=== PATIENT | male | born 1965 | race African-American/Black ===

== ENCOUNTER 2016-12-28 03:19 | Emergency (ER) | payer MEDICARE ==
[~2016-12-28] VITALS: Ht 177.8 cm; Wt 103.0 kg
[2016-12-28 03:35] VITALS: BP 136/86
[2016-12-28] MEDS ORDERED: cefTRIAXone IM 250 MG VIAL IM ONE (04:15)
[2016-12-28] MEDS ORDERED: AZITHROMYCIN 250 MG TABLET. PO ONE (04:15)
[2016-12-28] MEDS ORDERED: HYDR453.4 TP (05:17)
--- NOTE | 2016-12-28 05:18 | PHYS DOC ---
Past Medical History Past Medical History: Other Additional Past Medical Histor: CHRONIC BACK PAIN Past Surgical History: Other Additional Past Surgical Histo: BACK Alcohol Use: Rarely Drug Use: None Adult General Chief Complaint Chief Complaint: OTHER COMPLAINTS HPI HPI Patient is a 51 year old male who presents with penile swelling. The patient reports 1 day history of swelling of the distal foreskin associated with painful urination. Also complains of bilateral testicular pain. Denies fevers/ chills, abdominal pain, nausea, vomiting, hematuria, penile discharge. Does not give a definite answer when asked if he could have been exposed to sexually transmitted disease. Also has itchy rash to left forearm without known exposure , no face/tongue/lip swelling, no shortness of breath. Review of Systems Review of Systems Constitutional: Denies fever or chills HENT: Denies nasal congestion or sore throat Respiratory: Denies cough or shortness of breath Cardiovascular: Denies chest pain GI: Denies abdominal pain, nausea, vomiting : Reports penile swelling Musculoskeletal: Denies back pain or joint pain Integument: Denies rash Neurologic: Denies headache Current Medications Current Medications Current Medications Medications (Trade) Dose Ordered Sig/Kenia Start Time Stop Time Status Last Admin Dose Admin Azithromycin (Zithromax) 1,000 mg 1X ONCE 12/28/16 04:15 12/28/16 04:16 DC Ceftriaxone Sodium (Rocephin Im) 250 mg 1X ONCE 12/28/16 04:15 12/28/16 04:16 DC Fluconazole (Diflucan) 150 mg 1X ONCE 12/28/16 05:30 12/28/16 05:31 DC 12/28/16 05:31 150 MG Allergies Allergies Allergies Coded Allergies Type Severity Reaction Last Updated Verified No Known Drug Allergies 12/04/15 No Physical Exam Physical Exam Constitutional: Well developed, well nourished, no acute distress, non-toxic appearance. HENT: Normocephalic, atraumatic, bilateral external ears normal, oropharynx moist, nose normal. Eyes: conjunctiva normal, no discharge. Cardiovascular: no edema. Lungs & Thorax: no respiratory distress. Abdomen: soft, nontender, nondistended. : uncircumcised penis with swelling over distal foreskin which can easily be retracted, no rash or lesions, no discharge evident, bilateral testicular tenderness without palpable masses Skin: Warm, dry, no erythema, erythematous maculopapular rash to volar forearm no urticaria or vesicular lesions. Extremities: No deformity Neurologic: Alert and oriented X 3 Current Patient Data Vital Signs Vital Signs Date Time Temp Pulse Resp B/P (MAP) Pulse Ox O2 Delivery O2 Flow Rate FiO2 12/28/16 03:35 97.9 79 16 96 Room Air 97.9 EKG EKG [] Radiology/Procedures Radiology/Procedures [] Course & Med Decision Making Course & Med Decision Making Pertinent Labs and Imaging studies reviewed. (See chart for details) The patient presents with penile swelling. Consistent with balanitis or possible insect bite. Gave diflucan x 1 & recommend benadryl for possible reaction to insect bite as well as contact dermatitis on forearm. Recommended empiric treatment for gonorrhea/chlamydia with urinary swab & testicular ultrasound, but the patient declined this evaluation after vacillating for over an hour. He states he just wants to be treated for penile swelling & would like to go home. He is aware of risk of possible undiagnosed condition. Counseled regarding safe sex, recommend follow up with PCP or urologist in 1 week. Come back for high fever, severe pain, uncontrolled vomiting, inability to urinate or inability to retract foreskin, or otherwise worsening condition. Discharged home in stable condition. [] Dragon Disclaimer Dragon Disclaimer This electronic medical record was generated, in whole or in part, using a voice recognition dictation system. Departure Departure Impression: Primary Impression: Balanitis Disposition: 01 HOME, SELF-CARE Condition: STABLE Referrals: NO PCP (PCP) Patient Instructions: Balanitis and Foreskin Hygiene, Contact Dermatitis, Easy- to-Read Additional Instructions: You were seen in the emergency department today for rash. Please apply the cream and take Benadryl for itching. You received antifungal treatment for penis infection. You refused testing or treatment for sexual transmitted infection. You declined ultrasound for testicular pain. Always use protection when having sexual intercourse. Benadryl may help with swelling if there is a bug bite contributing. Follow-up with primary care physician in 2-3 days. Return to the emergency department for face/tongue/lip swelling, severe shortness of breath, inability to urinate, severe abdominal pain, any otherwise worsening condition. Scripts Hydrocortisone (HYDROCORTISONE) 453.6 Gm Oint...g. 1 APPLIC TP BID, #60 GM 0 Refills Prov: HENRIQUE DUKE MD 12/28/16 HENRIQUE DUKE MD Dec 28, 2016 05:17
[2016-12-28] MEDS ORDERED: FLUCONAZOLE 100 MG TABLET. PO ONE (05:30)
== END 2016-12-28 05:36 | disposition home or self-care (01) ==
LOC: ER 03:19
DX: N48.1 Balanitis (principal); G89.29 Other chronic pain
CPT/HCPCS: 99283

== ENCOUNTER 2019-04-05 08:58 | Emergency (ER) | payer OTHER, MEDICAID ==
[~2019-04-05] VITALS: Ht 177.8 cm; Wt 103.0 kg
[~2019-04-05 08:58] MED LIST: HYDR453.4 TP
[2019-04-05 09:07] VITALS: BP 114/78
--- NOTE | 2019-04-05 09:18 | PHYS DOC ---
Past Medical History Past Medical History: Other Additional Past Medical Histor: CHRONIC BACK PAIN Past Surgical History: Other Additional Past Surgical Histo: BACK Alcohol Use: Rarely Drug Use: None Adult General Chief Complaint Chief Complaint: SEXUALLY TRANSMITTED DISEASE HPI HPI Patient is a 53 year old male who presents with dysuria and green discharge that has been ongoing for 1 day. The patient rates his pain a 7 out of 10 in severity. No other complaints. Review of Systems Review of Systems Constitutional: Denies fever or chills [] Eyes: Denies change in visual acuity, redness, or eye pain [] HENT: Denies nasal congestion or sore throat [] Respiratory: Denies cough or shortness of breath [] Cardiovascular: No additional information not addressed in HPI [] GI: Denies abdominal pain, nausea, vomiting, bloody stools or diarrhea [] : Reports dysuria and green discharge. Musculoskeletal: Denies back pain or joint pain [] Integument: Denies rash or skin lesions [] Neurologic: Denies headache, focal weakness or sensory changes [] Endocrine: Denies polyuria or polydipsia [] Complete systems were reviewed and found to be within normal limits, except as documented in this note. Current Medications Current Medications Current Medications Medications (Trade) Dose Ordered Sig/Kenia Start Time Stop Time Status Last Admin Dose Admin Azithromycin (Zithromax) 1,000 mg 1X ONCE 04/05/19 09:30 04/05/19 09:31 DC 04/05/19 09:31 1,000 MG Ceftriaxone Sodium (Rocephin Im) 250 mg 1X ONCE 04/05/19 09:30 04/05/19 09:31 DC 04/05/19 09:30 250 MG Allergies Allergies Allergies Coded Allergies Type Severity Reaction Last Updated Verified No Known Drug Allergies 12/04/15 No Physical Exam Physical Exam Constitutional: Well developed, well nourished, no acute distress, non-toxic appearance. [] HENT: Normocephalic, atraumatic, bilateral external ears normal, oropharynx moist, no oral exudates, nose normal. [] Eyes: PERRLA, EOMI, conjunctiva normal, no discharge. [] Neck: Normal range of motion, no tenderness, supple, no stridor. [] Cardiovascular:Heart rate regular rhythm, no murmur [] Lungs & Thorax: Bilateral breath sounds clear to auscultation [] Abdomen: Bowel sounds normal, soft, no tenderness, no masses, no pulsatile masses. [] Skin: Warm, dry, no erythema, no rash. [] Back: No tenderness, no CVA tenderness. [] Extremities: No tenderness, no cyanosis, no clubbing, ROM intact, no edema. [] Neurologic: Alert and oriented X 3, normal motor function, normal sensory function, no focal deficits noted. [] Psychologic: Affect normal, judgement normal, mood normal. [] Current Patient Data Vital Signs Vital Signs Date Time Temp Pulse Resp B/P (MAP) Pulse Ox O2 Delivery O2 Flow Rate FiO2 04/05/19 09:07 98.2 70 16 114/78 (90) 98 Room Air 98.2 Lab Values Laboratory Tests Test 04/05/19 09:15 Urine Collection Type Unknown Urine Color Yellow Urine Clarity Cloudy Urine pH 6.0 Urine Specific [place] >=1.030 Urine Protein 30 mg/dL (NEG-TRACE) Urine Glucose (UA) Negative mg/dL (NEG) Urine Ketones (Stick) Trace mg/dL (NEG) Urine Blood Small (NEG) Urine Nitrite Negative (NEG) Urine Bilirubin Small (NEG) Urine Urobilinogen Dipstick 1.0 mg/dL (0.2 mg/dL) Urine Leukocyte Esterase Large (NEG) Urine RBC 6-10 /HPF (0-2) Urine WBC 20-40 /HPF (0-4) Urine Squamous Epithelial Cells Few /LPF Urine Bacteria Few /HPF (0-FEW) Urine Mucus Slight /LPF EKG EKG [] Radiology/Procedures Radiology/Procedures [] Course & Med Decision Making Course & Med Decision Making Pertinent Labs and Imaging studies reviewed. (See chart for details) Will get UA, GC/Chlamydia and will treat with Rocephin and Zithromax. Urine also shows leukocytes in urine and he has been having dysuria. Will treat with Keflex. Dragon Disclaimer Dragon Disclaimer This electronic medical record was generated, in whole or in part, using a voice recognition dictation system. Departure Departure Impression: Primary Impression: Concern about sexually transmitted disease in male without diagnosis Additional Impression: Urinary tract infection Disposition: HOME, SELF-CARE Condition: STABLE Referrals: NO PCP (PCP) Patient Instructions: Sexually Transmitted Disease Additional Instructions: Thank you for visiting [facility]. We appreciate you trusting us with your care. If any additional problems come up don't hesitate to return to visit us. Please follow up with your primary care provider so they can plan additional care if needed and know about the problem that you had. If symptoms worsen come back to the Emergency Department. Any concerning symptoms that start such as chest pain, shortness of air, weakness or numbness on one side of the body, running high fevers or any other concerning symptoms return to the ER. Please do not have sex for 2 weeks to avoid passing to partner. Please notify partners to get treated. You will get a call if results are positive in 48-72 hours. Scripts Cephalexin (KEFLEX) 500 Mg Capsule 1 CAP PO QID for 7 Days, #28 CAP 0 Refills Prov: RACHELLE JEAN BAPTISTE APRN 04/05/19 Problem Qualifiers Additional Impression: Urinary tract infection Urinary tract infection type: acute cystitis Hematuria presence: without hematuria Qualified Codes: N30.00 - Acute cystitis without hematuria RACHELLE JEAN BAPTISTE APRN Apr 05, 2019 09:18
[2019-04-05 09:23] LABS: BILIRUBIN,URINE SMALL (NEG); CLARITY,URINE CLOUDY; COLOR,URINE YELLOW; NITRITE,URINE NEGATIVE (NEG); PROTEIN,URINE 30 mg/dL (NEG-TRACE)
[2019-04-05] MEDS ORDERED: AZITHROMYCIN 250 MG TABLET. PO ONE (09:30)
[2019-04-05] MEDS ORDERED: cefTRIAXone IM 250 MG VIAL IM ONE (09:30)
[2019-04-05 09:45] LABS: WBC,URINE 20-40 /HPF (0-4)
[2019-04-05 09:46] LABS: BACTERIA,URINE FEW /HPF (0-FEW); SQUAMOUS EPITHELIAL CELL,UR FEW /LPF
[2019-04-05] MEDS ORDERED: CEPH-264 PO (09:48)
== END 2019-04-05 10:02 | disposition home or self-care (01) ==
LOC: ER 08:58
DX: N30.00 Acute cystitis without hematuria (principal); Z20.2 Contact with and (suspected) exposure to infections with a predominantly sexual mode of transmission; G89.29 Other chronic pain
CPT/HCPCS: 81001; 87086; 87491; 87591; 96372; 99284; J0696; Q0144